=== PATIENT | male | born 1985 | race Hispanic/Latino ===

== ENCOUNTER 2019-02-22 01:05 | Inpatient (IN) | payer MEDICAID, OTHER ==
[2019-02-22 03:54] LABS: BASO % 0.5 % (0.0-2.0); EOS # 0.1 K/uL (0.0-0.7); EOS % 0.8 % (0.0-4.0); HEMOGLOBIN 13.9 g/dL (12.0-18.0); LYMPH # 2.9 K/uL (1.0-4.3); LYMPH % 32.8 % (20.0-40.0); MEAN CELL VOLUME 88.1 fl (80.0-94.0); MEAN CORPUSCULAR HEMOGLOBIN 30.8 pg (27.0-31.0); MEAN CORPUSCULAR HGB CONC 34.9 g/dL (33.0-37.0); MEAN PLATELET VOLUME 7.5 fl (7.2-11.7); MONO # 0.7 K/uL (0.0-0.8); MONO % 7.6 % (0.0-10.0); NEUT # 5.2 K/uL (1.8-7.0); NEUT % 58.3 % (50.0-75.0); NRBC % 0.1 % (0.0-0.0); RBC 4.5 Mil/uL (4.40-5.90); RED CELL DISTRIBUTION WIDTH 13.1 % (11.5-14.5); WHITE BLOOD COUNT 8.9 K/uL (4.8-10.8)
[2019-02-22 04:01] LABS: ALB/GLOB RATIO 1.3 (1.0-2.1); ALBUMIN 4.1 g/dL (3.5-5.0); ALT/SGPT 34 U/L (21-72); AST/SGOT 26 U/L (17-59); BLOOD UREA NITROGEN 20 mg/dl (9-20); CALCIUM 8.8 mg/dL (8.4-10.2); GFR NON-AFRICAN AMERICAN > 60
[2019-02-22 04:08] LABS: URINE BILIRUBIN NEGATIVE (NEGATIVE); URINE BLOOD NEGATIVE (NEGATIVE); URINE CLARITY CLEAR (Clear); URINE COLOR YELLOW (YELLOW); URINE GLUCOSE (UA) NEG (NEGATIVE); URINE LEUKOCYTE ESTERASE NEG Leu/uL (Negative); URINE PROTEIN NEGATIVE (NEGATIVE); URINE UROBILINOGEN 0.2-1.0 mg/dL (0.2-1.0)
[2019-02-22 04:11] LABS: BARBITURATES, UR NEGATIVE (NEGATIVE); BENZODIAZEPINES, UR NEGATIVE (NEGATIVE); OPIATES, UR NEGATIVE (NEGATIVE); PHENCYCLIDINE, UR NEGATIVE (NEGATIVE)
--- NOTE | 2019-02-22 04:21 | ED PDOC ---
HPI: Psych/Substance Abuse Time Seen by Provider: 02/22/19 01:56 Chief Complaint (Nursing): Psychiatric Evaluation Chief Complaint (Provider): Depression History Per: Patient History/Exam Limitations: no limitations Onset/Duration Of Symptoms: Days Current Symptoms Are (Timing): Still Present Additional Complaint(s): 34 yo male with history of HIV, anxiety and depression presents for evaluation of depression. 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 PT states he began a new job 4 days ago and has been feeling overwhelmed. PT states he stopped using crystal meth last week in preparation for his new job. PT states he also has been unable to take his medications for HIV and depression since his locker was broken. Pt reports suicidal thoughts without a plan. Pt also reports hearing voices telling him he is worthless. Past Medical History Reviewed: Historical Data, Nursing Documentation, Vital Signs Vital Signs: Last Vital Signs Temp 98.1 F 02/22/19 01:36 Pulse 85 02/22/19 01:36 Resp 19 02/22/19 01:36 BP 125/78 02/22/19 01:36 Pulse Ox 96 02/22/19 01:36 Primary Care Provider: Blake Pedro - Medical History PMH: Depression, HIV Denies: Diabetes, Hepatitis, HTN, Seizures, Sexually Transmitted Disease - Surgical History Surgical History: No Surg Hx - Family History Family History: States: No Known Family Hx - Living Arrangements Living Arrangements: With Family - Social History Current smoker - smoking cessation education provided: No - Allergies Allergies/Adverse Reactions: Allergies Allergy/AdvReac Type Severity Reaction Status Date / Time Sulfa (Sulfonamide Allergy URTICARIA Verified 02/22/19 01:39 Antibiotics) Review of Systems ROS Statement: Except As Marked, All Systems Reviewed And Found Negative Constitutional: Negative for: Fever, Chills Cardiovascular: Negative for: Chest Pain, Palpitations Respiratory: Negative for: Cough, Shortness of Breath Genitourinary Male: Negative for: Dysuria, Frequency Skin: Negative for: Rash, Lesions Psych: Positive for: Anxiety, Depression, Suicidal ideation. Negative for: Psychosis Physical Exam - Reviewed Nursing Documentation Reviewed: Yes Vital Signs Reviewed: Yes - Physical Exam Appears: Positive for: Well, Non-toxic, No Acute Distress Head Exam: Positive for: ATRAUMATIC, NORMAL INSPECTION, NORMOCEPHALIC Skin: Positive for: Normal Color, Warm, DRY Eye Exam: Positive for: Normal appearance ENT: Positive for: Normal ENT Inspection Neck: Positive for: Normal, Painless ROM Cardiovascular/Chest: Positive for: Regular Rate, Rhythm Respiratory: Positive for: Normal Breath Sounds. Negative for: Accessory Muscle Use, Respiratory Distress Back: Positive for: Normal Inspection Extremity: Positive for: Normal ROM Neurological/Psych: Positive for: Awake, Alert, Normal Tone - Laboratory Results Result Diagrams: 02/22/19 03:49 02/22/19 03:49 Lab Results: Total Bilirubin 0.3 mg/dl (0.2-1.3) 02/22/19 03:49 AST 26 U/L (17-59) 02/22/19 03:49 ALT 34 U/L (21-72) 02/22/19 03:49 Alkaline Phosphatase 64 U/L (38-126) 02/22/19 03:49 Total Protein 7.2 G/DL (6.3-8.2) 02/22/19 03:49 Albumin 4.1 g/dL (3.5-5.0) 02/22/19 03:49 Globulin 3.1 gm/dL (2.2-3.9) 02/22/19 03:49 Albumin/Globulin Ratio 1.3 (1.0-2.1) 02/22/19 03:49 Urine Color Yellow (YELLOW) 02/22/19 03:49 Urine Clarity Clear (Clear) 02/22/19 03:49 Urine pH 6.0 (5.0-8.0) 02/22/19 03:49 Ur Specific [place] 1.013 (1.003-1.030) 02/22/19 03:49 Urine Protein Negative mg/dL (NEGATIVE) 02/22/19 03:49 Urine Glucose (UA) Neg mg/dL (NEGATIVE) 02/22/19 03:49 Urine Ketones Negative mg/dL (NEGATIVE) 02/22/19 03:49 Urine Blood Negative (NEGATIVE) 02/22/19 03:49 Urine Nitrate Negative (NEGATIVE) 02/22/19 03:49 Urine Bilirubin Negative (NEGATIVE) 02/22/19 03:49 Urine Urobilinogen 0.2-1.0 mg/dL (0.2-1.0) 02/22/19 03:49 Ur Leukocyte Esterase Neg Martha/uL (Negative) 02/22/19 03:49 Urine RBC (Auto) < 1 /hpf (0-3) 02/22/19 03:49 Urine Microscopic WBC < 1 /hpf (0-5) 02/22/19 03:49 - ECG O2 Sat by Pulse Oximetry: 96 Pulse Ox Interpretation: Normal Medical Decision Making Medical Decision Making: CXR normal. Labs reviewed and normal. Disposition - Clinical Impression Clinical Impression: Major depressive disorder - Patient ED Disposition Is Patient to be Admitted: Yes - Disposition Referrals: Blake Pedro MD [Primary Care Provider] - Disposition Time: 04:25 Condition: GOOD
--- NOTE | 2019-02-22 10:50 | CARD ---
APPROVED REPORT Date of service: 02/22/2019 EKG Measurement Heart [id number] <Conclusion> Normal sinus rhythm Normal ECG
--- NOTE | 2019-02-22 11:08 | RAD ---
Date of service: 02/22/2019 HISTORY: admission COMPARISON: No prior. TECHNIQUE: Chest PA and lateral views FINDINGS: LUNGS: No active pulmonary disease. PLEURA: No significant pleural effusion identified. No pneumothorax apparent. CARDIOVASCULAR: No aortic atherosclerotic calcification present. Normal cardiac size. No pulmonary vascular congestion. OSSEOUS STRUCTURES: No significant abnormalities. VISUALIZED UPPER ABDOMEN: Normal. OTHER FINDINGS: None. IMPRESSION: No active disease.
[2019-02-22 13:40] VITALS: O2SAT 99
[2019-02-22 15:27] VITALS: TEMP 98.7
[2019-02-22] MEDS ORDERED: Alum-Mag Hydrox-Simethicone Susp (30 mL) PO PRN (15:53)
[2019-02-22] MEDS ORDERED: Magnesium Hydroxide Susp 30 ml UD PO PRN (15:53)
[2019-02-22] MEDS ORDERED: DiphenhydrAMINE 50 mg/ml Inj IM PRN (15:53)
--- NOTE | 2019-02-22 18:23 | PCM.BM ---
<Suzi Rose - Last Filed: 02/22/19 18:21> Treatment Plan Problems - Problems identified on initial assessmt Suicidal Ideation Date Initiated: 02/22/19 Time Initiated: 18:22 Assessment reference: NA Status: Active Feelings of Worthlessness Date Initiated: 02/22/19 Time Initiated: 18:22 Assessment reference: NA Status: Active Medication Nonadhereance Date Initiated: 02/22/19 Time Initiated: 18:23 Assessment reference: NA Status: Active Altered Sleep Patterns Date Initiated: 02/22/19 Time Initiated: 18:23 Assessment reference: NA Status: Active Treatment assets and liabiliti Patient Assests: educated, good support system, cognitively intact Patient Liabilities: substance abuse - Milieu Protocol Maintain good personal hygiene: daily Encourage regular showers, every shift Remind patient to perform daily oral care, every shift Assist patient to perform ADL's Conduct patient checks and document Observation sheet: Q15 minutes Maintain personal safety: every shift Educate patient to report safety concerns to staff, every shift Monitor environment for contraband/sharps Medication safety: Monitor for expected outcome, potential side effects: every shift, Assess barriers to learning: every shift, Assess readiness for medication education: every shift <Que Garcia - Last Filed: 02/25/19 14:54> - Diagnosis (1) Major depressive disorder Status: Acute Interventions: 02/25/19 13:55 psychotherapy
--- NOTE | 2019-02-23 14:40 | PCM.PSYCH ---
Initial Psychiatric Evaluation - Initial Psychiatric Evaluation Chief Complaint (in patient's own words): pt reports started a new job in the [employer] this past week, was feeling stressed, had missed approx. 10 days of medication because he was taking got accidently locked in safe where they are usually kept(bloom got jammed). became overwhelmed anxious was having thoughts to take his life without plan. 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 PT PRESENTED A 34Y/O MALE WITH COMPLAINT OF SEVERE DEPRESSION AND SUICIDAL IDEATIONS. PT REPORTED THAT HE WAS SEEING A PSYCHIATRIST; HOWEVER HAD TO STOP ABOUT TWO MONTHS AGO DUE TO BEING UNABLE TO AFFORD IT ANYMORE. HE REPORTED THAT HIS PSYCHIATRIST DID NOT ACCEPT MEDICAID SO HE WAS PAYING OUT OF POCKET. HE REPORTED THAT HE WAS BEING PRESCRIBED CELEXA AND RISPERDALO; HOWEVER HAS NOT TAKEN THEM IN OVER A MONTH. HE REPORTED THAT HE WAS KEEPING HIS MEDICATIONS IN A SAFE AND BROKEN THE LOCK SO HE COULD NOT GET TO THEM. HE REPORTED THAT HE TRIED TO GET HIS PMD TO GIVE HIM A PRESCRIPTION BUT THE PMD WOULD NOT AND INSTEAD GAVE HIM AN RX FOR TRAZADONE. PT REPORTED THAT HE HAS BEEN USING CRYSTAL METH ON AND OFF FOR THE PAST TEN YEARS; HOWEVER STOPPED TWO WEEKS AGO BECAUSE HE FINALLY GOT A GOOD JOB AND HE STARTED THIS PAST MONDAY. HE REPORTED THAT HE WAS NOT ABLE TO GO TO WORK ON MONDAY OR MONDAY BECAUSE HE JUST COULD NOT GET HIMSELF OUT OF BED. HE REPORTED THAT HIS DEPRESSION HAS GOTTEN SO BAD THAT HE LITERALLY CANNOT FUNCTION. HE REPORTED THAT HE CAME TO THE ER TODAY BECAUSE HE BEGAN TO HEAR VOICES TELLING HIM TO KILL HIMSELF AND BEGAN TO FEEL THOUGH THIS WAS HIS ONLY OPTION. HE REPORTED THAT HE SPOKE TO HIS ROOMMATE WHO ENCOURAGED HIM TO GET HELP. PT REPORTED THAT HE HAS NOT SELPT IN DAYS AND IS OVERWHELMED BY EVERYTHING IN HIS LIFE. HE IS ALSO HIV POSITIVE AND DOES NOT FEEL THOUGH HE CAN SUCCESSFULLY NAVIGATE A JOB WELL FOLOW UP WITH ALL HIS MEDICAL/MENTAL HEALTH NEEDS. PT HAS PRIOR SUICIDE ATTEMPTS AND IS TRYING HARD TO NOT HAVE ANOTHER ONE. AT THE TIME OF ASSESSMENT, PT WAS CALM, COOPERATIVE AND BEHAVIORALLY CONTROLLED. SPEECH WAS AT A NORMAL RATE AND TONE. PSYCHOMOTOR SKILLS WERE WITHIN NORMAL LIMITS. HIS THOUGHT PROCESS WAS FAIR. HIS THOUGHT CONTENT EXCLUDED THE PRESENCE OF PERCEPTUAL DELUSIONS. HE CONTINUES TO EXPRESS SI AND AN INABILITY TO CONTRACT FOR HIS DAFETY IF RELEASED FROM THE ER. HE DENIED HI. HE CONTINUES TO REPORT HAVING COMMAND AUDITORY HALLUCINATIONS IN WHICH HE HEARS VOICES TELLING HIM TO KILL HIMSELF. DENIED V/T HALLUCINATIONS AND WAS NOT OBSERVED AT ANY TIME OF BE RESPONDING TO INTERNAL/EXTERNAL STIMULI. HE DISPLAYED NO SIGNS OF PSYCHOSIS; HOWEVER GIVEN HIS HX IS CAPABLE OF PSYCHIATRIC DANGEROUSNESS. HE WAS NOT IN ACUTE CRISIS; HOWEVER WAS IN MILD MENTAL DISTRESS. THE PT WAS OX3 AND ALERT. HE WAS FAIRLY WELL GROOMED. HIS HYGIENE WAS FAIR AND HE APPEARED TO BE IN FAIR PHYSICAL HEALTH. HIS GAIT WAS STEADY AND HIS POSTURE AND BALANCE REMAINED UNIMPAIRED. HE REPORTED SIGNIFICANT SLEEP AND APPETITE DISTURBANCES. HIS MOOD WAS DEPRESSED AND HIS AFFECT WAS FLAT. PT REPORTED THAT HE KNOWS THAT HE PRETTY MUCH LOST HIS JOB AND THIS HAS HIM SIGNIFICANTLY UPEST WELL WHEREAS IT TOOK HIM A LONG TIME TO FIND THIS JOB AND BECAUSE OF HIS LACK OF TREATMENT WAS NOT STABLE ENOUGH TO BE ABLE TO KEEP IT. MEMORY AND EYE CONTACT WERE FAIR. INSIGHT AND JUDGMENT WERE LIMITED TO FAIR. PT SCORED A 16 ON HIS SUICIDE ASSESSMENT WHICH INDICATES ELEVATED RISK. Current Medications: Active Medications Generic Name Dose Route Start Last Admin Trade Name Freq PRN Reason Stop Dose Admin Acetaminophen 650 mg 02/22/19 15:53 Tylenol 325mg Tab PO Q4 PRN Pain, moderate (4-7) Al Hydrox/Mg Hydrox/Simethicone 30 ml 02/22/19 15:53 Maalox Plus 30 Ml PO Q4 PRN Dyspepsia Diphenhydramine HCl 50 mg 02/22/19 15:53 Benadryl IM Q6 PRN Extrapyramidal S/S Unable PO Diphenhydramine HCl 50 mg 02/22/19 15:53 Benadryl PO Q6 PRN Extrapyramidal Symptoms Diphenhydramine HCl 50 mg 02/22/19 19:54 02/23/19 01:56 Benadryl PO 50 mg HS PRN Administration Sleep Escitalopram Oxalate 10 mg 02/22/19 22:00 02/22/19 21:05 Lexapro PO 10 mg HS AKI Administration Haloperidol 5 mg 02/22/19 15:53 Haldol PO Q4 PRN Agitation Haloperidol Lactate 5 mg 02/22/19 15:53 Haldol IM Q4 PRN Agitation, Unable to Take PO Lorazepam 2 mg 02/22/19 15:53 Ativan IM Q4 PRN Anxiety/Agitation,Unable PO Lorazepam 2 mg 02/22/19 15:53 Ativan PO Q4 PRN Anxiety/Agitation Magnesium Hydroxide 30 ml 02/22/19 15:53 Milk Of Magnesia PO HS PRN Constipation Nicotine 1 patch 02/23/19 12:15 02/23/19 12:48 Nicoderm Cq TD 1 patch DAILY AKI Administration Past Psychiatric History - Past Psychiatric History Prior Professional Help: see prior History of Abuse: denies History of ETOH/Drug Use: negative utox History of Family Illness: defers Pertinent Medical Hx (Current Medical&Sleep Prob, Allergies): Allergies Allergy/AdvReac Type Severity Reaction Status Date / Time Sulfa (Sulfonamide Allergy URTICARIA Verified 02/22/19 01:39 Antibiotics) Elviteg/Natalia/Emtric/Tenofo Dis [Stribild Tablet] 1 tab PO PRN PRN 02/22/19 Escitalopram [Lexapro] 1 tab PO DAILY 02/22/19 Risperidone [Risperdal] 0.5 mg PO DAILY 02/22/19 Review of Systems - Psychiatric Psychiatric: Abnormal Sleep Pattern, Depression, Suicidal Ideation Mental Status Examination - Personal Presentation Personal Presentation: Looks stated age - Affect Affect: Constricted - Reliability in Providing Information Reliability in Providing Information: Fair - Speech Speech: Organized - Mood Mood: Depressed - Formal Thought Process Formal Thought Process: No Impairment - Cognitive Functions Orientation: Person, Place, Situation, Time Sensorium: Alert Attention/Concentration: Attentive Judgement: Imparied, as evidence by: Other - Risk Risk: Suicidal, Diminished functioning - Strength & Assets Inventory Strength & Assets Inventory: Intelligence, Cooperative (hx of non adherence ) DSM 5 DX - DSM 5 DSM 5 Diagnosis: major depressive disorder moderate to severe without psychosis non adherence - Recommended/Plan of Treatment Treatment Recommendations and Plan of Treatment: inpt admission per attending md vital signs and clinical assessment per protocol and per clinical status prns per unit protocol hospitalist consult related to possible hiv related medications restart home meds lexapro 10mg po daily/risperdal 0.5mg po hs discharge per clinical statusa Projected ELOS: 5-7 days Prognosis: guarded Discharge Plan and Discharge Criteria: safety - Smoking Cessation Smoking Cessation Initiated: Yes
--- NOTE | 2019-02-24 15:33 | PCM.PYCHPN ---
Psychiatric Progress Note - Psychiatric Progress Note Patient seen today, length of contact: chart reviewed, case discussed with team, pt seen Patient Chief Complaint: seen in milieu, pt reports somewhat less anxious, requests to take risperdone 0.5mg po hs 2nd to reported daytime somnolence. seen about unit. team has been in communication with dr. díaz related to pt's antiretroviral (single tablet form-3 meds not on formulary). staff report pt rx. adherent. Problems Identified/Issues Discussed: alteration in mood Medical Problems: pt chart pt being followed by dr díaz/andr[facility] Diagnostic Results: per psychiatry, per medicine, per nursing, per manager social work, per recreational therapy DSM 5 Symptoms Update: some improvement mood alteratiion in immune function Medication Change: Yes (rispderdal 0.5mg po hs) Medical Record Reviewed: Yes Consults ordered or reviewed: pt being followed by dr. adela díaz/andrés lucas related to b20 Mental Status Examination - Cognitive Function Orientation: Person, Place, Situation, Time Attention: WNL Concentration: WNL Association: WNL Fund of Knowledge: WNL Decription of patient's judgement and insights: somewhat less depressed anxious, less reported lability mood, some improvement sleep - Mood Mood: Depressed - Affect Affect: Broad - Speech Speech: Appropriate - Formal Thought Process Formal Thought Process: No Impairment - Homicidal Ideation Homicidal Ideation: No Goal/Treatment Plan - Goal/Treatment Plan Progress Toward Problem(s) and Goals/Treatment Plan: inpt milieu vital signs and clinical assessment per protocol and per clinical status prns per unit protocol hospitalist consult related to possible hiv related medications primary medical team made aware of pt's b20 medication related to non formulary single pill (three meds), 02/23/19 tsh 4.51 discharge per clinical statusa Estimated Date of D/C: 02/25/19 - Smoking Cessation Smoking Cessation Initiated: No Reason for not providing: defers
--- NOTE | 2019-02-24 15:54 | CP.PCM.HP ---
History of Present Illness - History of Present Illness History of Present Illness: pt admitted for depression/si. calm and cooperative at present. h/o hiv, depression no f/c, n/v/d. Present on Admission - Present on Admission Any Indicators Present on Admission: No Review of Systems - Psychiatric Psychiatric: As Per HPI, Depression, Suicidal Ideation Past Patient History - Past Social History Smoking Status: Unknown If Ever Smoked - CARDIAC Hx Cardiac Disorders: No - PULMONARY Hx Tuberculosis: No - NEUROLOGICAL Hx Seizures: No - HEMATOLOGICAL/ONCOLOGICAL Hx Blood Disorders: Yes Hx Human Immunodeficiency Virus (HIV): Yes - GENITOURINARY/GYNECOLOGICAL Hx Sexually Transmitted Disorders: No - PSYCHIATRIC Hx Anxiety: Yes Hx Depression: Yes Hx Substance Use: Yes (Pt used crystal meth 8 days ago) - ANESTHESIA Hx Anesthesia: No Meds Allergies/Adverse Reactions: Allergies Allergy/AdvReac Type Severity Reaction Status Date / Time Sulfa (Sulfonamide Allergy URTICARIA Verified 02/22/19 01:39 Antibiotics) Physical Exam - Constitutional Appears: Well, Non-toxic, No Acute Distress - Head Exam Head Exam: ATRAUMATIC, NORMAL INSPECTION, NORMOCEPHALIC - Eye Exam Eye Exam: EOMI, Normal appearance, PERRL Pupil Exam: NORMAL ACCOMODATION, PERRL - ENT Exam ENT Exam: Mucous Membranes Moist, Normal Exam - Neck Exam Neck exam: Positive for: Normal Inspection - Respiratory Exam Respiratory Exam: Clear to Auscultation Bilateral, NORMAL BREATHING PATTERN - Cardiovascular Exam Cardiovascular Exam: REGULAR RHYTHM, RRR, +S1, +S2 - GI/Abdominal Exam GI & Abdominal Exam: Normal Bowel Sounds, Soft. absent: Tenderness - Extremities Exam Extremities exam: Positive for: full ROM, normal capillary refill, normal inspection, pedal pulses present - Back Exam Back exam: NORMAL INSPECTION - Neurological Exam Neurological exam: Alert, CN II-XII Intact, Normal Gait, Oriented x3, Reflexes Normal - Psychiatric Exam Psychiatric exam: Normal Affect, Normal Mood - Skin Skin Exam: Dry, Intact, Normal Color, Warm Results - Vital Signs Recent Vital Signs: Last Vital Signs Temp 98.7 F 02/22/19 15:27 Pulse 65 02/23/19 16:55 Resp 20 02/23/19 16:55 BP 132/81 02/23/19 16:55 Pulse Ox 99 02/22/19 15:17 - Labs Result Diagrams: 02/22/19 03:49 02/22/19 03:49 Labs: Laboratory Results - last 24 hr 02/23/19 09:15 RPR Nonreactive Assessment & Plan (1) DVT prophylaxis Assessment and Plan: ambulation Status: Acute (2) HIV (human immunodeficiency virus infection) Assessment and Plan: cont home meds auto sub as per pharmacy, pt to bring in home meds if no sub available Status: Acute (3) Major depressive disorder Assessment and Plan: psych meds, interventions, therapies Status: Acute Decision To Admit - Pt Status Changed To: Hospital Disposition Of: Inpatient - Admit Certification Admit to Inpatient:: After my assessment, the patient will require hospitalization for at least two midnights. This is because of the severity of symptoms shown, intensity of services needed, and/or the medical risk in this patient being treated as an outpatient. - . Bed Request Type: Adult Psychiatry Admitting Physician: Elizabeth Houston
[2019-02-24 17:59] VITALS: BP 128/82; PULSE 64; RESP 18
--- NOTE | 2019-02-25 14:59 | PCM.PYCHDC ---
Mental Status Examination - Mental Status Examination Orientation: Person, Place, Situation Memory: Intact Mood: Neutral Affect: Broad Speech: Appropriate Attention: WNL Concentration: WNL Association: WNL Fund of Knowledge: WNL Formal Thought Process: No Impairment Description of patient's judgement and insight: fair insight and judgment Psychotic Thoughts and Behaviors: pt on discharge denied psychotic symptoms, non elicited Suicidal Ideation: No Current Homicidal Ideation?: No Discharge Summary - Discharge Note Reason for Hospitalization: pt reports started a new job in the [employer] this past week, was feeling stressed, had missed approx. 10 days of medication because he was taking got accidently locked in safe where they are usually kept(bloom got jammed). became overwhelmed anxious was having thoughts to take his life without plan. Consultations:: List each consultation separately and include: 1. Reason for request. 2. Findings. 3. Follow-up Summary of Hospital Course include:: 1. Description of specific treatment plan utilized for patients during their course of treatmen. 2. Summarize the time- course for resolution of acute symptoms and/or regressed behaviors. 3. Describe issues identified and worked on during hospitalization. 4. Describe medication utilized. 5. Describe medical problems identified and treated. 6. Reassessment of suicide risk Summary of Hospital Course: pt on admission was started on lexapro and risperidone CBT grou and supportive therapy provided, pt was comlpliant with medications and treatment . attended groups, no reported side effects of medications on discharge mental status was stable, pt denied any current suicidal or homicidal ideation denied perceptual disturbance s - Diagnosis (1) Major depressive disorder Current Visit: Yes Status: Acute - Final Diagnosis (DSM 5) Condition upon Discharge: GOOD DSM 5: major depression recurrent severe Disposition: HOME/ ROUTINE Prescriptions/Medication Reconciliation: RX: Escitalopram [Lexapro] 10 mg PO HS 3 Days #30 tab RX: Nicotine 14 mg/24 hr [Nicoderm CQ] 1 patch TD DAILY 30 Days #30 patch RX: risperiDONE [RisperDAL Tab] 0.5 mg PO DAILY 30 Days #30 tab - Antipsychotic Medications Pt discharged on 2 or more routine antipsychotic medications: No
== END 2019-02-25 16:30 | disposition home or self-care (01) | DRG 430 ==
LOC: H.ER 01:05 → H.ERHOLD 04:35 → H.PSYCH 15:31
PROVIDERS: ADMIT Psychiatry & Neurology Psychiatry; ATTEND Psychiatry & Neurology Psychiatry
PROC: GZHZZZZ Group Psychotherapy (ICD-10-PCS; principal; 2019-02-22)
DX: F33.2 Major depressive disorder, recurrent severe without psychotic features (principal); R45.851 Suicidal ideations; Z21 Asymptomatic human immunodeficiency virus [HIV] infection status; Z88.2 Allergy status to sulfonamides